=== PATIENT | male | born 1985 | race Caucasian/White ===

== ENCOUNTER 2018-08-15 12:57 | Emergency (ER) | payer OTHER ==
--- NOTE | 2018-08-15 13:55 | EDM.PDOC ---
ED HPI GENERAL MEDICAL PROBLEM - General Chief Complaint: ENT Problem Stated Complaint: EAR PAIN Time Seen by Provider: 08/15/18 13:47 Source of Information: Reports: Patient History Limitations: Reports: No Limitations - History of Present Illness INITIAL COMMENTS - FREE TEXT/NARRATIVE: This is a 32yo M here for concerns of a ear drum rupture. He states he [place] and noticed a sharp fluid release of the left ear. He has had ear tubes in the past and feels his ear drum may have ruptured. He states he felt and heard a large echeverria and sound. Onset: Sudden Duration: Resolved Prior to Arrival Location: Reports: Other (left ear drum) Improves with: Reports: None Worsens with: Reports: None Associated Symptoms: Reports: No Other Symptoms Left Eye Pain Score (Numeric/FACES): 4 - Related Data Allergies Allergy/AdvReac Type Severity Reaction Status Date / Time No Known Allergies Allergy Verified 08/15/18 13:15 Home Meds: Home Meds DULoxetine [Cymbalta] 20 mg PO DAILY 08/15/18 [History] Ofloxacin [Floxin 0.3% Otic Soln] 2 drop EARBOTH QID 7 Days #1 bottle 08/15/18 [ Rx] traZODone HCl [Trazodone HCl] 50 mg PO BEDTIME 08/15/18 [History] Past Medical History Psychiatric History: Reports: Depression - Infectious Disease History Infectious Disease History: Reports: None - Past Surgical History HEENT Surgical History: Reports: Other (See Below) Other HEENT Surgeries/Procedures: Button in septum. plugged it Male Surgical History: Reports: None Musculoskeletal Surgical History: Reports: Other (See Below) Other Musculoskeletal Surgeries/Procedures:: surgery to right knee x 2 - new ligament Social & Family History - Family History Family Medical History: Noncontributory - Tobacco Use Years of Tobacco use: 10 Used Tobacco, but Quit: No Second Hand Smoke Exposure: No Review of Systems - Review of Systems Review Of Systems: ROS reveals no pertinent complaints other than HPI. ED EXAM, GENERAL - Physical Exam Exam: See Below Exam Limited By: No Limitations General Appearance: Alert, WD/WN, No Apparent Distress Eye Exam: Bilateral Eye: EOMI, PERRL Ears: Normal External Exam, Normal TMs, Other (left ear drum with 2mm central opening likely from prior ear tube.) Ear Exam: Bilateral Ear: Auricle Normal, Canal Normal, TM normal (left ear drum with 2mm hole likely from prior ear tube) Nose: Normal Inspection Throat/Mouth: Normal Inspection Head: Atraumatic, Normocephalic Neck: Normal Inspection Respiratory/Chest: No Respiratory Distress, Lungs Clear Cardiovascular: Normal Peripheral Pulses, Regular Rate, Rhythm Course - Vital Signs Last Recorded V/S: Last Vital Signs Temp 36.6 C 08/15/18 13:00 Pulse 47 L 08/15/18 13:00 Resp 16 08/15/18 13:00 BP 114/80 08/15/18 13:00 Pulse Ox 100 08/15/18 13:00 Departure - Departure Time of Disposition: 13:30 Disposition: Home, Self-Care 01 Condition: Good Clinical Impression: Normal ear exam - Discharge Information Prescriptions: Ofloxacin [Floxin 0.3% Otic Soln] 2 drop EARBOTH QID 7 Days #1 bottle Instructions: Eardrum Rupture, Adult Referrals: PCP,Unknown [Primary Care Provider] - Forms: ED Department Discharge Care Plan Goals: Instructed not to dive anymore. To use earplugs when diving. To take antibiotic ear drops 2 to 3 qtss 3 to 4 x day. - Problem List & Annotations (1) Normal ear exam SNOMED Code(s): 461616665 Code(s): Z01.10 - ENCOUNTER FOR EXAM OF EARS AND HEARING W/O ABNORMAL FINDINGS Status: Acute Priority: High - Problem List Review Problem List Initiated/Reviewed/Updated: Yes - Assessment/Plan Plan: Counseled on normal ear exam and to f/u with his PCP when he gets home. Continue activities and protect ear drums with plug. F/u as needed in clinic or ER for further symptoms.
== END 2018-08-15 13:55 | disposition home or self-care (01) ==
LOC: LB.ED 12:57
DX: Z01.10 Encounter for examination of ears and hearing without abnormal findings (principal); F32.9 Major depressive disorder, single episode, unspecified; Z79.899 Other long term (current) drug therapy
CPT/HCPCS: 99282